=== PATIENT | male | born 1975 | race Caucasian/White ===

== ENCOUNTER 2016-07-20 09:13 | Emergency (ER) | payer SELFPAY ==
[2016-07-20] MEDS ORDERED: KETOROLAC TROMETHAMINE 60 MG/2 ML VIAL IM ONE ×2 (09:27→09:32)
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
[2016-07-20 11:04] VITALS: BP 128/72
== END 2016-07-20 11:00 | disposition home or self-care (01) ==
LOC: ER 09:13
DX: S76.011A Strain of muscle, fascia and tendon of right hip, initial encounter (principal); S33.5XXA Sprain of ligaments of lumbar spine, initial encounter; Z87.891 Personal history of nicotine dependence; W00.9XXA Unspecified fall due to ice and snow, initial encounter